=== PATIENT | male | born 1960 | race Caucasian/White ===

== ENCOUNTER → 2019-05-09 | Outpatient (CLI) | payer MEDICARE ==
[~2019-05-09] MED LIST: BACL10 PO; CITA20 PO; CLON.3 PO; HYDACE10B PO; LISHYD2012 PO; METH10 PO; PROM25 PO; RXPROM25 PO
[2019-05-09 17:23] LABS: Percent Saturation 4.9 % (20.0-50.0)
[2019-05-14 21:06] LABS: A/G RATIO 0.6 (0.7-1.7); ALBUMIN 2.8 g/dL (2.9-4.4); ALPHA-1-GLOBULIN 0.3 g/dL (0.0-0.4); ALPHA-2-GLOBULIN 0.8 g/dL (0.4-1.0); BETA GLOBULIN 0.9 g/dL (0.7-1.3); GAMMA GLOBULIN 2.5 g/dL (0.4-1.8); GLOBULIN, TOTAL 4.4 g/dL (2.2-3.9); IMMUNOFIXATION RESULT, SERUM Comment: (.); IMMUNOGLOBULIN A, QN, SERUM 86 mg/dL (61-437); IMMUNOGLOBULIN G, QN, SERUM 1469 mg/dL (700-1600); IMMUNOGLOBULIN M, QN, SERUM 231 mg/dL (20-172); M-SPIKE Not Observed g/dL (Not Observed); PROTEIN, TOTAL, SERUM 7.2 g/dL (6.0-8.5)
== END | disposition home or self-care (01) ==
LOC: LAB SHORT 10:00 → LAB 10:00
PROVIDERS: Internal Medicine Hematology & Oncology
DX: D64.9 Anemia, unspecified (principal); R53.81 Other malaise; R53.83 Other fatigue
CPT/HCPCS: 82728; 83540; 83550; 84165